=== PATIENT | male | born 1980 | race Asian ===

== ENCOUNTER 2021-08-21 00:52 | Emergency (ER) | payer BC ==
[~2021-08-21] VITALS: Ht 175.3 cm; Wt 84.0 kg
[2021-08-21] MEDS ORDERED: ONDANSETRON HCL 4MG/2ML INJ IV STA (01:33)
[2021-08-21] MEDS ORDERED: KETOROLAC 30MG/ML VIAL IV STA (01:33)
[2021-08-21] MEDS ORDERED: SODIUM CHLORIDE 0.9% 1,000 ML IV ONE (01:45)
[2021-08-21 02:32] LABS: BASOPHILS % 0.5 % (0.0-2.0); EOSINOPHILS % 0.3 % (0.0-5.0); HEMATOCRIT. 45.8 % (42.0-52.0); HEMOGLOBIN. 15.4 g/dL (14.0-18.0); LYMPHOCYTES % 11.8 % (20.0-50.0); MEAN CORPUSCULAR VOLUME 89.5 fL (80.0-94.0); MEAN PLATELET VOLUME 7.5 fl (7.4-10.4); MONOCYTES % 4.5 % (2.0-8.0); NEUTROPHILS % 82.9 % (40.0-76.0); PLATELET 249 x1000/uL (130-400); RED BLOOD CELL COUNT 5.12 mill/uL (4.7-6.1); RED CELL DISTRIBUTION WIDTH 13.1 % (11.6-14.6)
[2021-08-21 02:57] LABS: CHLORIDE 105 mEq/L (98-107)
[2021-08-21 05:59] LABS: CLARITY URINE CLEAR (CLEAR); COLOR URINE YELLOW (YELLOW); KETONES URINE NEGATIVE (NEGATIVE); LEUKOCYTE ESTERASE URINE NEGATIVE (NEGATIVE); NITRITE URINE NEGATIVE (NEGATIVE); OCCULT BLOOD URINE 2+ (NEGATIVE); PH URINE 6.5 (4.5-8.0); PROTEIN URINE TRACE (NEGATIVE); SPECIFIC GRAVITY URINE 1.015 (1.005-1.030); UROBILINOGEN URINE 0.2 E.U./dL (0.2-1.0)
[2021-08-21] MEDS ORDERED: IBUP-2029 MT (06:26)
[2021-08-21] MEDS ORDERED: TAMS-11 MT (06:26)
[2021-08-21 06:28] VITALS: BP 118/77
== END 2021-08-21 06:50 | disposition home or self-care (01) ==
LOC: ER 00:52
DX: N13.2 Hydronephrosis with renal and ureteral calculous obstruction (principal); K76.0 Fatty (change of) liver, not elsewhere classified
CPT/HCPCS: 36415; 74176; 80053; 81003; 83605; 83690; 85025; 96361; 96374; 96375; 99284; J1885; J2405; J7030